=== PATIENT | male | born 1970 | race Caucasian/White ===

== ENCOUNTER → 2019-07-02 | Outpatient (CLI) | payer MEDICARE ==
[~2019-07-02] MED LIST: ACET-1600 PO; BICT1TAB PO; CELE200C PO; DULO60CA56 PEG; ENOX40SY4 SQ; IBUP-1902 PO; OXYC5CAP2 PO
== END | disposition home or self-care (01) ==
LOC: WOUND 08:22
PROVIDERS: ATTEND Nurse Practitioner Family
DX: Z43.3 Encounter for attention to colostomy (principal); Z85.048 Personal history of other malignant neoplasm of rectum, rectosigmoid junction, and anus
CPT/HCPCS: G0463

== ENCOUNTER 2019-07-03 05:55 | Inpatient (IN) | payer MEDICARE ==
[~2019-07-03] VITALS: Ht 175.3 cm; Wt 76.9 kg
[2019-07-03] MEDS ORDERED: INDOCYANINE GREEN 25 MG VIAL ONE (06:54)
[2019-07-03] MEDS ORDERED: BUPIVACAINE/PF 0.5% ONE (06:54)
[2019-07-03 07:22] LABS: BASOPHILS # (AUTO) 0.03 x10^3/uL (0-0.1); BASOPHILS % (AUTO) 0 % (0-1); EOSINOPHILS # (AUTO) 0.19 x10^3/uL (0-0.4); EOSINOPHILS % (AUTO) 3 % (1-7); LYMPHOCYTES # (AUTO) 1.05 x10^3/uL (1-3.4); LYMPHOCYTES % (AUTO) 16 % (22-44); MD NO; MEAN CORPUSCULAR HEMOGLOBIN 23.9 pg (27.5-34.5); MEAN CORPUSCULAR HGB CONC 31.4 g/dL (33.2-36.2); MEAN CORPUSCULAR VOLUME 75.9 fL (81-97); MEAN PLATELET VOLUME 6.6 fL (7.4-10.4); MONOCYTES # (AUTO) 0.71 x10^3/uL (0.2-0.8); MONOCYTES % (AUTO) 11 % (2-9); NEUTROPHILS # (AUTO) 4.69 x10^3/uL (1.8-6.8); NEUTROPHILS % (AUTO) 70 % (42-75); PLATELET COUNT 408 x10^3/uL (130-400); RED BLOOD COUNT 4.99 x10^6/uL (4.38-5.82); RED CELL DISTRIBUTION WIDTH 19.1 % (9.4-14.8)
[2019-07-03] MEDS ORDERED: LACTATED RINGERS 1,000 ML IV SCH (07:28)
[2019-07-03] MEDS ORDERED: BICT1TAB PO (07:32)
[2019-07-03] MEDS ORDERED: DULO60CA56 PEG (07:32)
[2019-07-03] MEDS ORDERED: ACET-1600 PO (07:32)
[2019-07-03] MEDS ORDERED: IBUP-1902 PO (07:32)
[2019-07-03 07:41] LABS: ALANINE AMINOTRANSFERASE 30 U/L (12-78); ANION GAP 8 mmol/L (5-15); CHLORIDE 108 mmol/L (98-107); CREATININE 1.39 mg/dL (0.7-1.3)
[2019-07-03 07:43] LABS: ALKALINE PHOSPHATASE 103 U/L (45-117); BILIRUBIN,TOTAL 0.7 mg/dL (0.2-1.0); TOTAL PROTEIN 8.8 g/dL (6.4-8.2)
[2019-07-03] MEDS ORDERED: DIAZEPAM 5 MG TABLET PO STA (07:46)
[2019-07-03] MEDS ORDERED: ACETAMINOPHEN 500 MG TABLET PO STA (07:46)
[2019-07-03] MEDS ORDERED: POTASSIUM CHLORIDE 20 MEQ TAB.ER.PRT PO STA (07:46)
[2019-07-03] MEDS ORDERED: SCOPOLAMINE PATCH, 1.5MG PATCH.TD72 TD STA (07:46)
[2019-07-03] MEDS ORDERED: GABAPENTIN 300 MG CAPSULE PO STA (07:46)
[2019-07-03] MEDS ORDERED: ACETAMINOPHEN 500 MG TABLET ONE (07:51)
[2019-07-03] MEDS ORDERED: DIAZEPAM 5 MG TABLET ONE (07:51)
[2019-07-03] MEDS ORDERED: SCOPOLAMINE PATCH, 1.5MG PATCH.TD72 TD ONE (07:51)
[2019-07-03] MEDS ORDERED: GABAPENTIN 300 MG CAPSULE ONE (07:51)
[2019-07-03] MEDS ORDERED: DEXMEDETOMIDINE 200 MCG/2 ML ONE (07:56)
[2019-07-03] MEDS ORDERED: FENTANYL PF 250 MCG/5ML ONE ×2 (07:59→09:17)
[2019-07-03] MEDS ORDERED: MIDAZOLAM 1 MG/ML, 2ML ONE (07:59)
[2019-07-03] MEDS ORDERED: ROCURONIUM 10MG/ML,5ML ONE (08:00)
[2019-07-03] MEDS ORDERED: PROPOFOL 10 MG/ML, 20ML ONE (08:00)
[2019-07-03] MEDS ORDERED: ROPIvacaine/PF 0.2%, 20 ML ONE ×2 (08:02→08:04)
[2019-07-03] MEDS ORDERED: DEXAMETHASONE 4 MG/ML, 1ML ONE ×2 (08:07)
[2019-07-03] MEDS ORDERED: CEFOTETAN 2 GM ONE (08:08)
[2019-07-03] MEDS ORDERED: ONDANSETRON 2MG/ML, 2ML ONE ×2 (09:13)
[2019-07-03] MEDS ORDERED: hydrALAzine 20 MG/ML, 1ML IV PRN (09:30)
[2019-07-03] MEDS ORDERED: PROMETHAZINE 12.5 MG SUPP PR PRN (09:30)
[2019-07-03] MEDS ORDERED: OXYcodone 5 MG/5 ML ORAL.SOL UDC PO PRN (09:30)
[2019-07-03] MEDS ORDERED: MIDAZOLAM 1 MG/ML, 2ML IV PRN (09:30)
[2019-07-03] MEDS ORDERED: MEPERIDINE/PF 25MG/ML,1ML IVPush PRN (09:30)
[2019-07-03] MEDS ORDERED: PROMETHAZINE 25 MG/ML, 1ML IV PRN (09:30)
[2019-07-03] MEDS ORDERED: ALBUTEROL SULFATE 2.5 MG/3 ML NPPB PRN (09:30)
[2019-07-03] MEDS ORDERED: DIAZEPAM 5 MG/ML, 2ML IVPush PRN (09:30)
[2019-07-03] MEDS ORDERED: ONDANSETRON ODT 8 MG PO PRN (09:30)
[2019-07-03] MEDS ORDERED: HALOPERIDOL 5 MG/ML IV PRN (09:30)
[2019-07-03] MEDS ORDERED: EPHEDRINE 50 MG/ML, 1ML IVPush PRN (09:30)
[2019-07-03] MEDS ORDERED: LABETALOL 5MG/ML, 20ML IV PRN (09:30)
[2019-07-03] MEDS ORDERED: ONDANSETRON 2MG/ML, 2ML IV PRN ×2 (09:30→15:00)
[2019-07-03] MEDS ORDERED: NEOSTIGMINE 1 MG/ML, 10ML ONE (11:16)
[2019-07-03] MEDS ORDERED: GLYCOPYRROLATE 0.2MG/1ML, 5ML ONE (11:16)
[2019-07-03] MEDS ORDERED: HYDROmorphone 2 MG/ML, 1ML ONE (12:08)
[2019-07-03] MEDS ORDERED: FENTANYL PF 100 MCG/2ML ONE ×2 (12:08→13:05)
[2019-07-03] MEDS ORDERED: OXYcodone 5 MG/5 ML ORAL.SOL UDC ONE (12:09)
[2019-07-03] MEDS: HYDROmorphone 2 MG/ML, 1ML IVPush PRN ×5 (12:14→13:01)
[2019-07-03] MEDS: FENTANYL PF 100 MCG/2ML IV PRN ×4 (12:14→13:37)
[2019-07-03 14:25] VITALS: BP 141/95
[2019-07-03] MEDS ORDERED: LORazepam 2 MG/ML, 1ML IVPush PRN (15:00)
[2019-07-03] MEDS ORDERED: HALOPERIDOL 5 MG/ML IVPush PRN (15:00)
[2019-07-03] MEDS ORDERED: MORPHINE SULFATE 4 MG/ML, 1ML IVPush PRN (15:00)
[2019-07-03] MEDS ORDERED: DIPHENHYDRAMINE 25 MG CAPSULE PO PRN (15:00)
[2019-07-03] MEDS ORDERED: LORazepam 1MG TABLET PO PRN (15:00)
[2019-07-03] MEDS ORDERED: CALCIUM CARBONATE 500 MG TAB.CHEW PO PRN (15:00)
[2019-07-03] MEDS ORDERED: DIPHENHYDRAMINE 50 MG/ML, 1ML IVPush PRN (15:00)
[2019-07-03] MEDS ORDERED: DEXAMETHASONE 4 MG/ML, 1ML IVPush PRN (15:00)
[2019-07-03] MEDS: D5%-0.45NACL+KCL 20MEQ 1,000 ML IV SCH (16:22)
[2019-07-03] MEDS: ACETAMINOPHEN 500 MG TABLET PO SCH ×2 (16:22→21:45)
[2019-07-03] MEDS: OXYcodone IR 5MG TABLET PO PRN ×2 (16:30→19:50)
[2019-07-03 19:25] VITALS: BP 166/104
[2019-07-03] MEDS: [UNRECOGNIZED DRUG - OTHER] HOMEMEDPO SCH (21:00)
[2019-07-03] MEDS: BICTEGRAVIR HOMEMEDPO SCH (21:00)
[2019-07-03] MEDS: EMTRICITABINE HOMEMEDPO SCH (21:00)
[2019-07-03] MEDS: DULOXETINE 30 MG CAPSULE.DR PO SCH (21:46)
[2019-07-03] MEDS: TRAZODONE 50MG TABLET PO PRN (22:33)
[2019-07-04 00:05] VITALS: BP 148/78
[2019-07-04 00:37] VITALS: BP 125/83
[2019-07-04] MEDS: OXYcodone IR 5MG TABLET PO PRN ×4 (01:31→20:30)
[2019-07-04] MEDS: ACETAMINOPHEN 500 MG TABLET PO SCH ×4 (03:21→20:30)
[2019-07-04] MEDS: D5%-0.45NACL+KCL 20MEQ 1,000 ML IV SCH ×2 (04:30→19:36)
[2019-07-04 05:28] LABS: BASOPHILS # (AUTO) 0.03 x10^3/uL (0-0.1); BASOPHILS % (AUTO) 0 % (0-1); EOSINOPHILS % (AUTO) 1 % (1-7); LYMPHOCYTES # (AUTO) 1.43 x10^3/uL (1-3.4); LYMPHOCYTES % (AUTO) 11 % (22-44); MD NO; MEAN CORPUSCULAR HEMOGLOBIN 24.3 pg (27.5-34.5); MEAN CORPUSCULAR HGB CONC 31.5 g/dL (33.2-36.2); MEAN CORPUSCULAR VOLUME 77.2 fL (81-97); MEAN PLATELET VOLUME 7.1 fL (7.4-10.4); MONOCYTES # (AUTO) 1.34 x10^3/uL (0.2-0.8); MONOCYTES % (AUTO) 10 % (2-9); NEUTROPHILS # (AUTO) 10.57 x10^3/uL (1.8-6.8); NEUTROPHILS % (AUTO) 79 % (42-75); PLATELET COUNT 371 x10^3/uL (130-400); RED BLOOD COUNT 3.98 x10^6/uL (4.38-5.82); RED CELL DISTRIBUTION WIDTH 18.7 % (9.4-14.8)
[2019-07-04 05:32] LABS: ANION GAP 5 mmol/L (5-15); CALCIUM 8.6 mg/dL (8.5-10.1); CHLORIDE 107 mmol/L (98-107); CREATININE 1.44 mg/dL (0.7-1.3)
[2019-07-04 06:33] VITALS: BP 108/76
[2019-07-04] MEDS ORDERED: ENOXAPARIN 40 MG/0.4 ML SQ SCH (09:00)
[2019-07-04 12:21] VITALS: BP 111/72
[2019-07-04 19:02] VITALS: BP 129/79
[2019-07-04] MEDS: DULOXETINE 30 MG CAPSULE.DR PO SCH (20:30)
[2019-07-04] MEDS: TRAZODONE 50MG TABLET PO PRN (20:30)
[2019-07-04] MEDS: BICTEGRAVIR HOMEMEDPO SCH (20:32)
[2019-07-04] MEDS: [UNRECOGNIZED DRUG - OTHER] HOMEMEDPO SCH (20:32)
[2019-07-04] MEDS: EMTRICITABINE HOMEMEDPO SCH (20:32)
[2019-07-05] MEDS: D5%-0.45NACL+KCL 20MEQ 1,000 ML IV SCH ×2 (00:12→08:24)
[2019-07-05 01:41] VITALS: BP 120/82
[2019-07-05] MEDS: ACETAMINOPHEN 500 MG TABLET PO SCH ×4 (03:01→21:08)
[2019-07-05 03:34] LABS: BASOPHILS # (AUTO) 0.02 x10^3/uL (0-0.1); BASOPHILS % (AUTO) 0 % (0-1); EOSINOPHILS # (AUTO) 0.27 x10^3/uL (0-0.4); EOSINOPHILS % (AUTO) 3 % (1-7); LYMPHOCYTES % (AUTO) 9 % (22-44); MD NO; MEAN CORPUSCULAR HEMOGLOBIN 24.1 pg (27.5-34.5); MEAN CORPUSCULAR HGB CONC 30.7 g/dL (33.2-36.2); MEAN CORPUSCULAR VOLUME 78.5 fL (81-97); MONOCYTES # (AUTO) 0.86 x10^3/uL (0.2-0.8); MONOCYTES % (AUTO) 11 % (2-9); NEUTROPHILS # (AUTO) 6.22 x10^3/uL (1.8-6.8); NEUTROPHILS % (AUTO) 77 % (42-75); PLATELET COUNT 326 x10^3/uL (130-400); RED BLOOD COUNT 3.58 x10^6/uL (4.38-5.82); RED CELL DISTRIBUTION WIDTH 18.9 % (9.4-14.8)
[2019-07-05 03:44] LABS: ANION GAP 4 mmol/L (5-15); CALCIUM 8.7 mg/dL (8.5-10.1); CHLORIDE 107 mmol/L (98-107); CREATININE 1.18 mg/dL (0.7-1.3)
[2019-07-05 06:57] VITALS: BP 116/75
[2019-07-05 13:57] VITALS: BP 117/97
[2019-07-05] MEDS: OXYcodone IR 5MG TABLET PO PRN ×2 (14:00→22:03)
[2019-07-05 19:47] VITALS: BP 128/87
[2019-07-05] MEDS: [UNRECOGNIZED DRUG - OTHER] HOMEMEDPO SCH (21:00)
[2019-07-05] MEDS: EMTRICITABINE HOMEMEDPO SCH (21:00)
[2019-07-05] MEDS: BICTEGRAVIR HOMEMEDPO SCH (21:00)
[2019-07-05] MEDS: DULOXETINE 30 MG CAPSULE.DR PO SCH (21:08)
[2019-07-05] MEDS: TRAZODONE 50MG TABLET PO PRN (22:02)
[2019-07-06] MEDS: OXYcodone IR 5MG TABLET PO PRN ×3 (01:35→08:53)
[2019-07-06 01:47] VITALS: BP 130/90
[2019-07-06] MEDS: ACETAMINOPHEN 500 MG TABLET PO SCH ×2 (02:43→09:00)
[2019-07-06 03:42] LABS: BASOPHILS % (AUTO) 0 % (0-1); EOSINOPHILS # (AUTO) 0.21 x10^3/uL (0-0.4); EOSINOPHILS % (AUTO) 3 % (1-7); LYMPHOCYTES # (AUTO) 0.91 x10^3/uL (1-3.4); LYMPHOCYTES % (AUTO) 11 % (22-44); MD NO; MEAN CORPUSCULAR HEMOGLOBIN 24.2 pg (27.5-34.5); MEAN CORPUSCULAR HGB CONC 31.2 g/dL (33.2-36.2); MEAN CORPUSCULAR VOLUME 77.4 fL (81-97); MEAN PLATELET VOLUME 6.7 fL (7.4-10.4); MONOCYTES # (AUTO) 0.71 x10^3/uL (0.2-0.8); MONOCYTES % (AUTO) 9 % (2-9); NEUTROPHILS # (AUTO) 6.11 x10^3/uL (1.8-6.8); NEUTROPHILS % (AUTO) 77 % (42-75); PLATELET COUNT 341 x10^3/uL (130-400); RED BLOOD COUNT 3.72 x10^6/uL (4.38-5.82); RED CELL DISTRIBUTION WIDTH 19.4 % (9.4-14.8)
[2019-07-06 03:52] LABS: ANION GAP 8 mmol/L (5-15); CALCIUM 8.7 mg/dL (8.5-10.1); CHLORIDE 104 mmol/L (98-107); CREATININE 0.95 mg/dL (0.7-1.3)
[2019-07-06] MEDS ORDERED: POTASSIUM CHLORIDE 20 MEQ TAB.ER.PRT PO ONE (06:30)
[2019-07-06 06:55] VITALS: BP 122/86
[2019-07-06] MEDS ORDERED: SCOPOLAMINE PATCH, 1.5MG PATCH.TD72 TD PRN (08:00)
[2019-07-06] MEDS ORDERED: OXYC5CAP2 PO (08:33)
[2019-07-06] MEDS ORDERED: ENOX40SY4 SQ (08:34)
[2019-07-06] MEDS ORDERED: CELE200C PO (08:34)
== END 2019-07-06 10:08 | disposition home or self-care (01) | DRG 329 ==
LOC: ORIP 05:55 → 4NE 14:14 → DCLOUNGE 07-06 09:57
PROVIDERS: ADMIT Surgery; ATTEND Surgery
PROC: 0DTP0ZZ Resection of Rectum, Open Approach (ICD-10-PCS; principal; 2019-07-02)
PROC: 0DTN0ZZ Resection of Sigmoid Colon, Open Approach (ICD-10-PCS; 2019-07-02)
PROC: 0DTQ0ZZ Resection of Anus, Open Approach (ICD-10-PCS; 2019-07-02)
PROC: 0D1E0Z4 Bypass Large Intestine to Cutaneous, Open Approach (ICD-10-PCS; 2019-07-02)
PROC: 3E0T3BZ Introduction of Anesthetic Agent into Peripheral Nerves and Plexi, Percutaneous Approach (ICD-10-PCS; 2019-07-03)
PROC: 8E0W4CZ Robotic Assisted Procedure of Trunk Region, Percutaneous Endoscopic Approach (ICD-10-PCS; 2019-07-03)
DX: C20 Malignant neoplasm of rectum (principal); N17.0 Acute kidney failure with tubular necrosis; Z80.1 Family history of malignant neoplasm of trachea, bronchus and lung; Z82.49 Family history of ischemic heart disease and other diseases of the circulatory system; Z83.3 Family history of diabetes mellitus
CPT/HCPCS: 36415; 80048; 80053; 85025; 86850; 86900; 88304; 88309; 88341; 88342; 93005; C1729; G0378; G0463; J1100; J1170; J1650; J2250; J2405; J2704; J2710; J2795; J3010; J2060; J3480; J3490; J7120

== ENCOUNTER 2019-09-03 11:48 | Day surgery (SDC) | payer MEDICARE ==
[~2019-09-03] VITALS: Ht 175.3 cm; Wt 81.0 kg
[2019-09-03] MEDS ORDERED: SODIUM CHLORIDE 0.9% 1,000 ML IV SCH (12:08)
[2019-09-03] MEDS ORDERED: CEFAZOLIN PMX 1GM/50ML 50 ML IV STA (12:08)
[2019-09-03 12:18] VITALS: BP 132/94
[2019-09-03] MEDS ORDERED: CEFAZOLIN PMX 1GM/50ML 50 ML ONE (12:29)
[2019-09-03] MEDS ORDERED: PLEASE ENTER HEIGHT AND WEIGHT MC SCH (12:30)
[2019-09-03] MEDS ORDERED: LIDOCAINE 1%, 10ML ONE (13:08)
[2019-09-03] MEDS ORDERED: LIDOCAINE 1%, 20ML ONE (13:08)
[2019-09-03] MEDS ORDERED: NALOXONE 1 MG/ML, 2ML ONE (13:22)
[2019-09-03] MEDS ORDERED: FENTANYL PF 100 MCG/2ML ONE (13:22)
[2019-09-03] MEDS ORDERED: FLUMAZENIL 0.1 MG/1 ML, 5ML ONE (13:22)
[2019-09-03] MEDS ORDERED: MIDAZOLAM 1 MG/ML, 5ML ONE ×2 (13:22)
[2019-09-11] MEDS ORDERED: CAPE500T24 PO (08:45)
[2019-09-11] MEDS ORDERED: PROC10TA78 PO (08:45)
== END 2019-09-03 16:05 | disposition home or self-care (01) ==
LOC: OUT 11:48
PROVIDERS: ATTEND Pathology Hematology
DX: C21.0 Malignant neoplasm of anus, unspecified (principal); E61.2 Magnesium deficiency; M79.7 Fibromyalgia; E78.5 Hyperlipidemia, unspecified; G47.30 Sleep apnea, unspecified; F17.220 Nicotine dependence, chewing tobacco, uncomplicated; Z79.899 Other long term (current) drug therapy
CPT/HCPCS: 36561; 76937; 77001; 99156; 99157; J0690; J1642; J2250; J3010; J7030; J2310

== ENCOUNTER → 2020-04-28 | Outpatient (CLI) | payer MEDICARE ==
[~2020-04-28] MED LIST changes: +CAPE500T24 PO; +OMNIPAQUE 350 MG/ML, 100ML BOTTLE ONE; +PROC10TA78 PO
== END | disposition home or self-care (01) ==
LOC: CFH 09:28
PROVIDERS: ATTEND Pathology Hematology
DX: C20 Malignant neoplasm of rectum (principal); N20.0 Calculus of kidney; E61.2 Magnesium deficiency
CPT/HCPCS: 74177; Q9967

== ENCOUNTER 2020-07-08 09:59 | Day surgery (SDC) | payer MEDICARE ==
[~2020-07-08] VITALS: Ht 175.3 cm; Wt 83.0 kg
[~2020-07-08 09:59] MED LIST changes: -OMNIPAQUE 350 MG/ML, 100ML BOTTLE ONE
[2020-07-08 10:34] VITALS: BP 145/97
[2020-07-08] MEDS ORDERED: LIDOCAINE 1%, 20ML ONE (12:50)
[2020-07-08] MEDS ORDERED: FENTANYL PF 100 MCG/2ML ONE ×2 (12:58)
[2020-07-08] MEDS ORDERED: NALOXONE 1 MG/ML, 2ML ONE (12:58)
[2020-07-08] MEDS ORDERED: FLUMAZENIL 0.1 MG/1 ML, 5ML ONE (12:58)
[2020-07-08] MEDS ORDERED: MIDAZOLAM 1 MG/ML, 5ML ONE (12:58)
== END 2020-07-08 14:30 | disposition home or self-care (01) ==
LOC: OUT 09:59
PROVIDERS: ATTEND Pathology Hematology
DX: Z45.2 Encounter for adjustment and management of vascular access device (principal); C20 Malignant neoplasm of rectum; E61.2 Magnesium deficiency; M79.7 Fibromyalgia; E78.5 Hyperlipidemia, unspecified; G47.30 Sleep apnea, unspecified; B19.20 Unspecified viral hepatitis C without hepatic coma; F17.220 Nicotine dependence, chewing tobacco, uncomplicated; Z79.899 Other long term (current) drug therapy
CPT/HCPCS: 36590; 99156; 99157; J2250; J3010; 77001; J2310